=== PATIENT | female | born 1975 | race Caucasian/White ===

== ENCOUNTER 2018-10-30 15:21 | Inpatient (IN) | payer MEDICARE, MEDICAID, SELFPAY ==
[2018-10-30 15:21] VITALS: BP 154/105; PULSE 55; RESP 18; TEMP 36.9; O2SAT 99; BMI 28.1
--- NOTE | 2018-10-30 15:37 | ED.DCSUM_ITS ---
- ER Visit Summary Date of Service: 10/30/18 Chief Complaint: Heroin withdrawal History of Present Illness: The patient is a 43 F going through heroin withdrawal. Patient states she spoke with [facility] was advised to come to the ER because she did have vomiting. Patient states her last heroin use was 3 days ago. She has taken Subutex and Xanax to try to help her symptoms. She is been smoking weed at night. Patient states she continues to have vomiting, abdominal pain, and chills. Physical Examination: Blood pressure is 154 105, temperature 98.5, heart rate 55, respiratory rate 18, pulse ox 99% on room air. Patient sitting upright in bed wrapped in multiple blankets. Head and neck examination unremarkable. Heart is regular. Lung sounds are clear. Abdomen is soft with no focal tenderness. Hypoactive bowel sounds are noted. Skin examination does reveal goosebumps on her arms. Test Results: CBC and chemistry studies grossly unremarkable. LFTs normal. EtOH is unremarkable. Tox screen is pending. Emergency Department Course and Treatment: Patient is given IV fluid and Phenergan on arrival. Staff from [facility] came and saw the patient. She does qualify for the program and has a Cina score 17. I will speak with the hospitalist. Treatment Plan: [] Disposition: Admit Impression: Heroin withdrawal This note was generated with [employer] dictation software. It may contain incorrect words, spelling, and punctuation that were not noted in review of the chart prior to signing ED Disposition - Plan for ED Patient: Referrals: NOT,DEFINED [NON-STAFF] -
[2018-10-30] MEDS: 0.9% Normal Saline 1,000 ML 1000 ML IV (15:53)
[2018-10-30] MEDS: proMETHazine 25 MG/ML Syringe 12.5 MG IV (15:54)
[2018-10-30 16:07] LABS: Absolute Lymphocyte Count 1.47 X10^3/ul (0.83-4.51); Absolute Neutrophil Count 6.8 X10^3/uL (2.0-7.7); Basophil# 0.02 X10^3/uL; Basophil% 0.2 % (0-1); Hematocrit 44.9 % (37-47); Hemoglobin 14.9 g/dl (12.0-15.0); Lymphocyte # 1.47 X10^3/ul (4.0); Lymphocyte % 16.9 % (19-41); Mean Corp Hgb Conc 33.2 g/gl (32-36); Mean Corpuscular Hgb 27.1 pg (27.0-32.0); Mean Corpuscular Volume 81.6 fL (81-99); Mean Platelet Vol. 9.7 fl (6.2-12.0); Monocyte# 0.42 X10^3/uL; Monocyte% 4.8 % (0-10); Neutrophil # 6.76 X10^3/uL (2.7-7.7); Neutrophil % 77.9 % (47-70); POSITIVE COUNT NO; POSITIVE DIFFERENTIAL NO; POSITIVE MORPHOLOGY NO; Platelet Count 334 K/mm3 (150-450); RBC Distribution Width CV 13.6 % (11.6-14.6); RBC Distribution Width SD 40.3 fl (35.1-43.9); White Blood Count 8.7 K/mm3 (4.4-11.0)
[2018-10-30 16:32] LABS: AST(SGOT) 11 U/L (15-37); Alanine Aminotransfer ALT/SGPT 17 U/L (13-56); Albumin, Serum 3.6 g/dL (3.2-5.0); Alkaline Phosphatase 109 U/L (45-117); Anion Gap 9 (5-15); BUN 9 mg/dL (7-18); BUN/Creat Ratio 9.8 RATIO (10-20); Bilirubin, Direct 0.09 mg/dL (0.00-0.30); Calcium,Total 9.2 mg/dL (8.5-10.1); Chloride 106 mmol/L (98-107); Creatinine, Serum 0.92 mg/dL (0.55-1.02); EST Glomerular Filtration Rate 70 mL/min (>60); Est Glom Filt Rate - Afr Amer 85 mL/min (>60); Estimated Creatinine Clearance 75.09 ml/min; Globulin 4.2 g/dL (2.2-4.2); Glucose 139 mg/dL (74-106); Potassium 4.3 mmol/L (3.5-5.1); Protein, Total 7.8 g/dL (6.4-8.2); Sodium Level 141 mmol/L (136-145)
--- NOTE | 2018-10-30 17:15 | PCM.HP.STD ---
<Melanie Humphrey - Last Filed: 10/30/18 17:26> Problem List (1) Opioid withdrawal Status: Acute (2) Tobacco dependence Status: Chronic (3) Myasthenia gravis Status: Chronic History of Present Illness Date of Admission: 10/30/18 Chief Complaint: Opioid withdrawal. The patient is a 43 year old F who presents to the emergency room requesting [facility] for opioid withdrawal. She reports she has been using heroin via snorting approximately 1 g/day for the past year. She reports her last use was 3 days ago. She has been trying to wean herself off of heroin over the past 2 weeks, using Subutex and Xanax to get herself through withdrawal. She complains of chills, abdominal pain and nausea, vomiting. She reports she also uses marijuana daily and is a current pack per day smoker. Denies other drug and alcohol use. She reports a past medical history of myasthenia gravis which she is not on medication for. Denies other past medical history. Past Medical History Past Medical History (Chronic Problems): Chronic Problems Tobacco dependence (Chronic) Myasthenia gravis (Chronic) Allergies acetaminophen [From Darvocet-N] Adverse Reaction (Verified 10/30/18 15:23) Vomiting propoxyphene [From Darvocet-N] Adverse Reaction (Verified 10/30/18 15:23) Vomiting Home Medications: Ambulatory Orders Medication Instructions Recorded NK 10/30/18 Surgical History: - - x2, appendectomy. 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 Review of Systems Constitutional: Reports: Chills, Malaise HEENT: Reports: Nasal Congestion. Denies: Head Aches, Sinus Congestion, Sinus Drainage Cardiovascular: Denies: Chest Pain, Edema, Light Headedness, Palpitations, Syncope Respiratory: Denies: Cough, Shortness of breath at rest, Sputum production Gastrointestinal: Reports: Abdominal Pain, Nausea, Vomiting. Denies: Constipation, Diarrhea Genitourinary: Denies: Dysuria Musculoskeletal: Denies: Joint Pain, Joint Tenderness Skin: Denies: Rash, Wounds Neurological: Denies: Numbness, Tingling, Focal weakness Psychiatric: Denies: Anxiety, Depression, Homicidal Ideations, Suicidal Ideations Hematologic/ Lymphatic: Denies: Easy Bruising, Easy Bleeding VTE Information - Inpt Only VTE Present on Admission: No VTE Mechan Device Prophylaxis: None VTE Pharm Prophylaxis ordered?: No Reason prophylaxis not ordered:: Treatment Not Indicated Patient Problems: Active and Suspected Problems Opioid withdrawal (Acute) - Physical Exam General: Alert, Oriented x3, Cooperative HEENT: Atraumatic, PERRLA, EOMI, Normocephalic Oral: Dry Mucosa, - - Poor dentition Neck: Supple, No JVD, Negative Carotid Bruits Lungs: Clear to auscultation, Diminished Cardiovascular: Regular rate, Regular Rhythm, Normal S1, Normal S2, No murmurs Abdomen: Bowel Sounds Present, Soft, Non Tender, Non-Distended, Obese Extremities: No clubbing, No cyanosis, No edema, Capillary Refill Less than 3 Seconds Skin: No rashes, No breakdown Musculoskeletal: No Tenderness to Palpation of Joints or Extremities Neurological: Cranial nerves II-XII grossly intact, Neuro grossly intact Psych/Mental Status: Flat Affect Vital Signs Temp Pulse Resp BP Pulse Ox 98.5 F 55 L 18 154/105 H 99 10/30/18 15:21 10/30/18 15:21 10/30/18 15:21 10/30/18 15:21 10/30/18 15:21 Weight: 180 lb Body Mass Index (BMI) 28.1 Laboratory Tests Past 24 Hrs 10/30/18 10/30/18 10/30/18 15:35 15:35 15:35 WBC 8.7 RBC 5.50 H Hgb 14.9 Hct 44.9 MCV 81.6 MCH 27.1 MCHC 33.2 RDW 13.6 RDW Differential 40.3 Plt Count 334 MPV 9.7 Immature Gran % (Auto) 0.200 Neut % (Auto) 77.9 H Lymph % (Auto) 16.9 L Mcleod % (Auto) 4.8 Eos % (Auto) 0.0 Baso % (Auto) 0.2 Absolute Neuts (auto) 6.8 Absolute Lymphs (auto) 1.47 Total Counted Not Reportable Sodium 141 Potassium 4.3 Chloride 106 Carbon Dioxide 26.0 Anion Gap 9 BUN 9 Creatinine 0.92 Estim Creat Clear Calc 75.09 Est GFR (MDRD) Af Amer 85 Est GFR (MDRD) Non-Af 70 BUN/Creatinine Ratio 9.8 L Glucose 139 H Calcium 9.2 Total Bilirubin 0.30 Direct Bilirubin 0.09 AST 11 L ALT 17 Alkaline Phosphatase 109 Total Protein 7.8 Albumin 3.6 Globulin 4.2 Urine Color Urine Clarity Urine pH Ur Specific Logan U Specif Grav (Refrac) Urine Protein Urine Glucose (UA) Urine Ketones Urine Occult Blood Urine Nitrite Urine Bilirubin Urine Urobilinogen Ur Leukocyte Esterase Urine RBC Urine WBC Ur Squamous Epith Cells Ur Transition Epith Cell Ur Renal Epithelial Cell Calcium Oxalate Crystal Uric Acid Crystals Triple Phos Crystals Other Crystals Amorphous Sediment Urine Bacteria Hyaline Casts Fine Granular Casts Coarse Granular Casts Waxy Casts RBC Casts WBC Casts Urine Mucus Urine Trichomonas Urine Yeast Ethyl Alcohol 9.0 10/30/18 16:20 WBC RBC Hgb Hct MCV MCH MCHC RDW RDW Differential Plt Count MPV Immature Gran % (Auto) Neut % (Auto) Lymph % (Auto) Mcleod % (Auto) Eos % (Auto) Baso % (Auto) Absolute Neuts (auto) Absolute Lymphs (auto) Total Counted Sodium Potassium Chloride Carbon Dioxide Anion Gap BUN Creatinine Estim Creat Clear Calc Est GFR (MDRD) Af Amer Est GFR (MDRD) Non-Af BUN/Creatinine Ratio Glucose Calcium Total Bilirubin Direct Bilirubin AST ALT Alkaline Phosphatase Total Protein Albumin Globulin Urine Color Cancelled Urine Clarity Cancelled Urine pH Cancelled Ur Specific Logan Cancelled U Specif Grav (Refrac) Cancelled Urine Protein Cancelled Urine Glucose (UA) Cancelled Urine Ketones Cancelled Urine Occult Blood Cancelled Urine Nitrite Cancelled Urine Bilirubin Cancelled Urine Urobilinogen Cancelled Ur Leukocyte Esterase Cancelled Urine RBC Cancelled Urine WBC Cancelled Ur Squamous Epith Cells Cancelled Ur Transition Epith Cell Cancelled Ur Renal Epithelial Cell Cancelled Calcium Oxalate Crystal Cancelled Uric Acid Crystals Cancelled Triple Phos Crystals Cancelled Other Crystals Cancelled Amorphous Sediment Cancelled Urine Bacteria Cancelled Hyaline Casts Cancelled Fine Granular Casts Cancelled Coarse Granular Casts Cancelled Waxy Casts Cancelled RBC Casts Cancelled WBC Casts Cancelled Urine Mucus Cancelled Urine Trichomonas Cancelled Urine Yeast Cancelled Ethyl Alcohol Assessment/Plan All Active Problems Opioid withdrawal (Acute) 1. Acute opioid withdrawal, chronic heroin use-medical stabilization per [facility] protocol. PRN regimen for somatic complaints. Obtain urine drug screen. CBC, CMP unremarkable with exception of elevated glucose. 2. Tobacco dependence-encourage smoking cessation. Nicotine replacement patch. 3. Myasthenia gravis-not on regimen. DVT prophylaxis-not indicated, low risk. This patient was seen by BRIAN Roman under the supervision of Dr. Duncan. <DakotaSamantha E - Last Filed: 10/30/18 17:37> History of Present Illness The patient is a 43 year old F [] Past Medical History Allergies acetaminophen [From Darvocet-N] Adverse Reaction (Verified 10/30/18 15:23) Vomiting propoxyphene [From Darvocet-N] Adverse Reaction (Verified 10/30/18 15:23) Vomiting - Physical Exam Vital Signs Temp Pulse Resp BP Pulse Ox 98.5 F 55 L 18 154/105 H 99 10/30/18 15:21 10/30/18 15:21 10/30/18 15:21 10/30/18 15:21 10/30/18 15:21 Weight: 180 lb Body Mass Index (BMI) 28.1 Laboratory Tests Past 24 Hrs 10/30/18 10/30/18 10/30/18 15:35 15:35 15:35 WBC 8.7 RBC 5.50 H Hgb 14.9 Hct 44.9 MCV 81.6 MCH 27.1 MCHC 33.2 RDW 13.6 RDW Differential 40.3 Plt Count 334 MPV 9.7 Immature Gran % (Auto) 0.200 Neut % (Auto) 77.9 H Lymph % (Auto) 16.9 L Mcleod % (Auto) 4.8 Eos % (Auto) 0.0 Baso % (Auto) 0.2 Absolute Neuts (auto) 6.8 Absolute Lymphs (auto) 1.47 Total Counted Not Reportable Sodium 141 Potassium 4.3 Chloride 106 Carbon Dioxide 26.0 Anion Gap 9 BUN 9 Creatinine 0.92 Estim Creat Clear Calc 75.09 Est GFR (MDRD) Af Amer 85 Est GFR (MDRD) Non-Af 70 BUN/Creatinine Ratio 9.8 L Glucose 139 H Calcium 9.2 Total Bilirubin 0.30 Direct Bilirubin 0.09 AST 11 L ALT 17 Alkaline Phosphatase 109 Total Protein 7.8 Albumin 3.6 Globulin 4.2 Urine Color Urine Clarity Urine pH Ur Specific Logan U Specif Grav (Refrac) Urine Protein Urine Glucose (UA) Urine Ketones Urine Occult Blood Urine Nitrite Urine Bilirubin Urine Urobilinogen Ur Leukocyte Esterase Urine RBC Urine WBC Ur Squamous Epith Cells Ur Transition Epith Cell Ur Renal Epithelial Cell Calcium Oxalate Crystal Uric Acid Crystals Triple Phos Crystals Other Crystals Amorphous Sediment Urine Bacteria Hyaline Casts Fine Granular Casts Coarse Granular Casts Waxy Casts RBC Casts WBC Casts Urine Mucus Urine Trichomonas Urine Yeast Ethyl Alcohol 9.0 10/30/18 16:20 WBC RBC Hgb Hct MCV MCH MCHC RDW RDW Differential Plt Count MPV Immature Gran % (Auto) Neut % (Auto) Lymph % (Auto) Mcleod % (Auto) Eos % (Auto) Baso % (Auto) Absolute Neuts (auto) Absolute Lymphs (auto) Total Counted Sodium Potassium Chloride Carbon Dioxide Anion Gap BUN Creatinine Estim Creat Clear Calc Est GFR (MDRD) Af Amer Est GFR (MDRD) Non-Af BUN/Creatinine Ratio Glucose Calcium Total Bilirubin Direct Bilirubin AST ALT Alkaline Phosphatase Total Protein Albumin Globulin Urine Color Cancelled Urine Clarity Cancelled Urine pH Cancelled Ur Specific Logan Cancelled U Specif Grav (Refrac) Cancelled Urine Protein Cancelled Urine Glucose (UA) Cancelled Urine Ketones Cancelled Urine Occult Blood Cancelled Urine Nitrite Cancelled Urine Bilirubin Cancelled Urine Urobilinogen Cancelled Ur Leukocyte Esterase Cancelled Urine RBC Cancelled Urine WBC Cancelled Ur Squamous Epith Cells Cancelled Ur Transition Epith Cell Cancelled Ur Renal Epithelial Cell Cancelled Calcium Oxalate Crystal Cancelled Uric Acid Crystals Cancelled Triple Phos Crystals Cancelled Other Crystals Cancelled Amorphous Sediment Cancelled Urine Bacteria Cancelled Hyaline Casts Cancelled Fine Granular Casts Cancelled Coarse Granular Casts Cancelled Waxy Casts Cancelled RBC Casts Cancelled WBC Casts Cancelled Urine Mucus Cancelled Urine Trichomonas Cancelled Urine Yeast Cancelled Ethyl Alcohol Assessment/Plan Hospitalist note: I am seeing this patient in conjunction with Melanie Humphrey. I independently seen and examined the patient. History and physical and laboratory data reviewed and I agree with the above admission and treatment plan. Patient presented to the emergency room requesting admission for acute opioid withdrawal for medical stabilization. Her presenting symptoms are nausea and vomiting started 2 days ago after her last use of heroin, associated with mild abdominal pain, described as abdominal cramps, not radiating and without aggravating or relieving factors. She admitted that she has been smoking marijuana as well. She complains of hot and cold sweats, restlessness and anxiety as well. At this time, her vital signs are stable. Her routine blood work was unremarkable. LFT was normal. She is being admitted for acute opioid withdrawal for medical stabilization. - Physical Exam General: Alert, Oriented x3, Cooperative, restless. HEENT: Atraumatic, PERRLA, EOMI. Neck: Supple, No JVD, Negative Carotid Bruits, Trachea Midline, Thyroid Normal. Lungs: Clear to auscultation, Normal air movement, No rhonchi, No wheeze, No rales. Cardiovascular: Regular rate, Regular Rhythm, Normal S1, Normal S2, PMI Normal. Abdomen: Bowel Sounds Present, Soft, Non Tender, Non-Distended, No Hepato-splenomegaly. Extremities: No clubbing, No cyanosis, No edema Skin: No rashes, No breakdown Neurological: Neuro grossly intact. Vital Signs are stable. assessment and plan: #1 acute opiate withdrawal: Admit to [facility] floor, initiate [facility] protocol with the back of Subutex, PRN Catapres, Bentyl, Vistaril, methocarbamol, Zofran and Mirapex, trazodone nightly, notify [facility] office. #2 other chronic medical problems: Stable, continue current medications as above. This note was generated with [employer] dictation software. It may contain incorrect words, spelling, and punctuation that were not noted in checking the note before signing. Code Visit Inpatient E&M: 81322 Init Hosp L2
--- NOTE | 2018-10-30 17:20 | HP.PCM_ITS ---
<Melanie Humphrey - Last Filed: 10/30/18 17:26> Problem List (1) Opioid withdrawal Status: Acute (2) Tobacco dependence Status: Chronic (3) Myasthenia gravis Status: Chronic History of Present Illness Date of Admission: 10/30/18 Chief Complaint: Opioid withdrawal. The patient is a 43 year old F who presents to the emergency room requesting [facility] for opioid withdrawal. She reports she has been using heroin via snorting approximately 1 g/day for the past year. She reports her last use was 3 days ago. She has been trying to wean herself off of heroin over the past 2 weeks, using Subutex and Xanax to get herself through withdrawal. She complains of chills, abdominal pain and nausea, vomiting. She reports she also uses marijuana daily and is a current pack per day smoker. Denies other drug and alcohol use. She reports a past medical history of myasthenia gravis which she is not on medication for. Denies other past medical history. Past Medical History Past Medical History (Chronic Problems): Chronic Problems Tobacco dependence (Chronic) Myasthenia gravis (Chronic) Allergies acetaminophen [From Darvocet-N] Adverse Reaction (Verified 10/30/18 15:23) Vomiting propoxyphene [From Darvocet-N] Adverse Reaction (Verified 10/30/18 15:23) Vomiting Home Medications: Ambulatory Orders Medication Instructions Recorded NK 10/30/18 Surgical History: - - x2, appendectomy. 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 Review of Systems Constitutional: Reports: Chills, Malaise HEENT: Reports: Nasal Congestion. Denies: Head Aches, Sinus Congestion, Sinus Drainage Cardiovascular: Denies: Chest Pain, Edema, Light Headedness, Palpitations, Syncope Respiratory: Denies: Cough, Shortness of breath at rest, Sputum production Gastrointestinal: Reports: Abdominal Pain, Nausea, Vomiting. Denies: Constipation, Diarrhea Genitourinary: Denies: Dysuria Musculoskeletal: Denies: Joint Pain, Joint Tenderness Skin: Denies: Rash, Wounds Neurological: Denies: Numbness, Tingling, Focal weakness Psychiatric: Denies: Anxiety, Depression, Homicidal Ideations, Suicidal Ideations Hematologic/ Lymphatic: Denies: Easy Bruising, Easy Bleeding VTE Information - Inpt Only VTE Present on Admission: No VTE Mechan Device Prophylaxis: None VTE Pharm Prophylaxis ordered?: No Reason prophylaxis not ordered:: Treatment Not Indicated Patient Problems: Active and Suspected Problems Opioid withdrawal (Acute) - Physical Exam General: Alert, Oriented x3, Cooperative HEENT: Atraumatic, PERRLA, EOMI, Normocephalic Oral: Dry Mucosa, - - Poor dentition Neck: Supple, No JVD, Negative Carotid Bruits Lungs: Clear to auscultation, Diminished Cardiovascular: Regular rate, Regular Rhythm, Normal S1, Normal S2, No murmurs Abdomen: Bowel Sounds Present, Soft, Non Tender, Non-Distended, Obese Extremities: No clubbing, No cyanosis, No edema, Capillary Refill Less than 3 Seconds Skin: No rashes, No breakdown Musculoskeletal: No Tenderness to Palpation of Joints or Extremities Neurological: Cranial nerves II-XII grossly intact, Neuro grossly intact Psych/Mental Status: Flat Affect Vital Signs Temp Pulse Resp BP Pulse Ox 98.5 F 55 L 18 154/105 H 99 10/30/18 15:21 10/30/18 15:21 10/30/18 15:21 10/30/18 15:21 10/30/18 15:21 Weight: 180 lb Body Mass Index (BMI) 28.1 Laboratory Tests Past 24 Hrs 10/30/18 10/30/18 10/30/18 15:35 15:35 15:35 WBC 8.7 RBC 5.50 H Hgb 14.9 Hct 44.9 MCV 81.6 MCH 27.1 MCHC 33.2 RDW 13.6 RDW Differential 40.3 Plt Count 334 MPV 9.7 Immature Gran % (Auto) 0.200 Neut % (Auto) 77.9 H Lymph % (Auto) 16.9 L [place] % (Auto) 4.8 Eos % (Auto) 0.0 Baso % (Auto) 0.2 Absolute Neuts (auto) 6.8 Absolute Lymphs (auto) 1.47 Total Counted Not Reportable Sodium 141 Potassium 4.3 Chloride 106 Carbon Dioxide 26.0 Anion Gap 9 BUN 9 Creatinine 0.92 Estim Creat Clear Calc 75.09 Est GFR (MDRD) Af Amer 85 Est GFR (MDRD) Non-Af 70 BUN/Creatinine Ratio 9.8 L Glucose 139 H Calcium 9.2 Total Bilirubin 0.30 Direct Bilirubin 0.09 AST 11 L ALT 17 Alkaline Phosphatase 109 Total Protein 7.8 Albumin 3.6 Globulin 4.2 Urine Color Urine Clarity Urine pH Ur Specific [place] U Specif Grav (Refrac) Urine Protein Urine Glucose (UA) Urine Ketones Urine Occult Blood Urine Nitrite Urine Bilirubin Urine Urobilinogen Ur Leukocyte Esterase Urine RBC Urine WBC Ur Squamous Epith Cells Ur Transition Epith Cell Ur Renal Epithelial Cell Calcium Oxalate Crystal Uric Acid Crystals Triple Phos Crystals Other Crystals Amorphous Sediment Urine Bacteria Hyaline Casts Fine Granular Casts Coarse Granular Casts Waxy Casts RBC Casts WBC Casts Urine Mucus Urine Trichomonas Urine Yeast Ethyl Alcohol 9.0 10/30/18 16:20 WBC RBC Hgb Hct MCV MCH MCHC RDW RDW Differential Plt Count MPV Immature Gran % (Auto) Neut % (Auto) Lymph % (Auto) [place] % (Auto) Eos % (Auto) Baso % (Auto) Absolute Neuts (auto) Absolute Lymphs (auto) Total Counted Sodium Potassium Chloride Carbon Dioxide Anion Gap BUN Creatinine Estim Creat Clear Calc Est GFR (MDRD) Af Amer Est GFR (MDRD) Non-Af BUN/Creatinine Ratio Glucose Calcium Total Bilirubin Direct Bilirubin AST ALT Alkaline Phosphatase Total Protein Albumin Globulin Urine Color Cancelled Urine Clarity Cancelled Urine pH Cancelled Ur Specific [place] Cancelled U Specif Grav (Refrac) Cancelled Urine Protein Cancelled Urine Glucose (UA) Cancelled Urine Ketones Cancelled Urine Occult Blood Cancelled Urine Nitrite Cancelled Urine Bilirubin Cancelled Urine Urobilinogen Cancelled Ur Leukocyte Esterase Cancelled Urine RBC Cancelled Urine WBC Cancelled Ur Squamous Epith Cells Cancelled Ur Transition Epith Cell Cancelled Ur Renal Epithelial Cell Cancelled Calcium Oxalate Crystal Cancelled Uric Acid Crystals Cancelled Triple Phos Crystals Cancelled Other Crystals Cancelled Amorphous Sediment Cancelled Urine Bacteria Cancelled Hyaline Casts Cancelled Fine Granular Casts Cancelled Coarse Granular Casts Cancelled Waxy Casts Cancelled RBC Casts Cancelled WBC Casts Cancelled Urine Mucus Cancelled Urine Trichomonas Cancelled Urine Yeast Cancelled Ethyl Alcohol Assessment/Plan All Active Problems Opioid withdrawal (Acute) 1. Acute opioid withdrawal, chronic heroin use-medical stabilization per [facility] protocol. PRN regimen for somatic complaints. Obtain urine drug screen. CBC, CMP unremarkable with exception of elevated glucose. 2. Tobacco dependence-encourage smoking cessation. Nicotine replacement patch. 3. Myasthenia gravis-not on regimen. DVT prophylaxis-not indicated, low risk. This patient was seen by BRIAN Roman under the supervision of Dr. Duncan. <DakotaSamantha E - Last Filed: 10/30/18 17:37> History of Present Illness The patient is a 43 year old F [] Past Medical History Allergies acetaminophen [From Darvocet-N] Adverse Reaction (Verified 10/30/18 15:23) Vomiting propoxyphene [From Darvocet-N] Adverse Reaction (Verified 10/30/18 15:23) Vomiting - Physical Exam Vital Signs Temp Pulse Resp BP Pulse Ox 98.5 F 55 L 18 154/105 H 99 10/30/18 15:21 10/30/18 15:21 10/30/18 15:21 10/30/18 15:21 10/30/18 15:21 Weight: 180 lb Body Mass Index (BMI) 28.1 Laboratory Tests Past 24 Hrs 10/30/18 10/30/18 10/30/18 15:35 15:35 15:35 WBC 8.7 RBC 5.50 H Hgb 14.9 Hct 44.9 MCV 81.6 MCH 27.1 MCHC 33.2 RDW 13.6 RDW Differential 40.3 Plt Count 334 MPV 9.7 Immature Gran % (Auto) 0.200 Neut % (Auto) 77.9 H Lymph % (Auto) 16.9 L [place] % (Auto) 4.8 Eos % (Auto) 0.0 Baso % (Auto) 0.2 Absolute Neuts (auto) 6.8 Absolute Lymphs (auto) 1.47 Total Counted Not Reportable Sodium 141 Potassium 4.3 Chloride 106 Carbon Dioxide 26.0 Anion Gap 9 BUN 9 Creatinine 0.92 Estim Creat Clear Calc 75.09 Est GFR (MDRD) Af Amer 85 Est GFR (MDRD) Non-Af 70 BUN/Creatinine Ratio 9.8 L Glucose 139 H Calcium 9.2 Total Bilirubin 0.30 Direct Bilirubin 0.09 AST 11 L ALT 17 Alkaline Phosphatase 109 Total Protein 7.8 Albumin 3.6 Globulin 4.2 Urine Color Urine Clarity Urine pH Ur Specific [place] U Specif Grav (Refrac) Urine Protein Urine Glucose (UA) Urine Ketones Urine Occult Blood Urine Nitrite Urine Bilirubin Urine Urobilinogen Ur Leukocyte Esterase Urine RBC Urine WBC Ur Squamous Epith Cells Ur Transition Epith Cell Ur Renal Epithelial Cell Calcium Oxalate Crystal Uric Acid Crystals Triple Phos Crystals Other Crystals Amorphous Sediment Urine Bacteria Hyaline Casts Fine Granular Casts Coarse Granular Casts Waxy Casts RBC Casts WBC Casts Urine Mucus Urine Trichomonas Urine Yeast Ethyl Alcohol 9.0 10/30/18 16:20 WBC RBC Hgb Hct MCV MCH MCHC RDW RDW Differential Plt Count MPV Immature Gran % (Auto) Neut % (Auto) Lymph % (Auto) [place] % (Auto) Eos % (Auto) Baso % (Auto) Absolute Neuts (auto) Absolute Lymphs (auto) Total Counted Sodium Potassium Chloride Carbon Dioxide Anion Gap BUN Creatinine Estim Creat Clear Calc Est GFR (MDRD) Af Amer Est GFR (MDRD) Non-Af BUN/Creatinine Ratio Glucose Calcium Total Bilirubin Direct Bilirubin AST ALT Alkaline Phosphatase Total Protein Albumin Globulin Urine Color Cancelled Urine Clarity Cancelled Urine pH Cancelled Ur Specific [place] Cancelled U Specif Grav (Refrac) Cancelled Urine Protein Cancelled Urine Glucose (UA) Cancelled Urine Ketones Cancelled Urine Occult Blood Cancelled Urine Nitrite Cancelled Urine Bilirubin Cancelled Urine Urobilinogen Cancelled Ur Leukocyte Esterase Cancelled Urine RBC Cancelled Urine WBC Cancelled Ur Squamous Epith Cells Cancelled Ur Transition Epith Cell Cancelled Ur Renal Epithelial Cell Cancelled Calcium Oxalate Crystal Cancelled Uric Acid Crystals Cancelled Triple Phos Crystals Cancelled Other Crystals Cancelled Amorphous Sediment Cancelled Urine Bacteria Cancelled Hyaline Casts Cancelled Fine Granular Casts Cancelled Coarse Granular Casts Cancelled Waxy Casts Cancelled RBC Casts Cancelled WBC Casts Cancelled Urine Mucus Cancelled Urine Trichomonas Cancelled Urine Yeast Cancelled Ethyl Alcohol Assessment/Plan Hospitalist note: I am seeing this patient in conjunction with Melanie Humphrey. I independently seen and examined the patient. History and physical and laboratory data reviewed and I agree with the above admission and treatment plan. Patient presented to the emergency room requesting admission for acute opioid withdrawal for medical stabilization. Her presenting symptoms are nausea and vomiting started 2 days ago after her last use of heroin, associated with mild abdominal pain, described as abdominal cramps, not radiating and without aggravating or relieving factors. She admitted that she has been smoking marijuana as well. She complains of hot and cold sweats, restlessness and anxiety as well. At this time, her vital signs are stable. Her routine blood work was unremarkable. LFT was normal. She is being admitted for acute opioid withdrawal for medical st abilization. - Physical Exam General: Alert, Oriented x3, Cooperative, restless. HEENT: Atraumatic, PERRLA, EOMI. Neck: Supple, No JVD, Negative Carotid Bruits, Trachea Midline, Thyroid Normal. Lungs: Clear to auscultation, Normal air movement, No rhonchi, No wheeze, No rales. Cardiovascular: Regular rate, Regular Rhythm, Normal S1, Normal S2, PMI Normal. Abdomen: Bowel Sounds Present, Soft, Non Tender, Non-Distended, No Hepato- splenomegaly. Extremities: No clubbing, No cyanosis, No edema Skin: No rashes, No breakdown Neurological: Neuro grossly intact. Vital Signs are stable. assessment and plan: #1 acute opiate withdrawal: Admit to MedSurg floor, initiate [facility] protocol with the back of Subutex, PRN Catapres, Bentyl, Vistaril, methocarbamol, Zofran and Mirapex, trazodone nightly, notify [facility] office. #2 other chronic medical problems: Stable, continue current medications as above. This note was generated with [employer] dictation software. It may contain incorrect words, spelling, and punctuation that were not noted in checking the note before signing. Code Visit Inpatient E&M: 94599 Init Hosp L2
[2018-10-30 17:36] VITALS: BMI 28.2
[2018-10-30 17:46] VITALS: BP 140/86; PULSE 60; RESP 16; TEMP 36.9; O2SAT 97
[2018-10-30 17:48] VITALS: BMI 36.6
[2018-10-30] MEDS: Ondansetron ODT 4 MG Tablet PO (18:01)
[2018-10-30 18:03] LABS: Internal QC Validated? YES +Cl - CLEAR BKGD; Pregnancy, Serum, hCG Quali. NEGATIVE Negative
[2018-10-30 18:11] VITALS: BP 140/86; PULSE 60; RESP 16; TEMP 36.9
[2018-10-30] MEDS: Methocarbamol 750 MG Tablet PO (18:15)
[2018-10-30] MEDS: cloNIDine HCl 0.1 MG Tablet PO (18:15)
[2018-10-30] MEDS: Buprenorphine HCl 2 MG TAB.SUBL SL (18:15)
[2018-10-30] MEDS: Pramipexole Di-HCl 0.25 MG Tablet PO (18:15)
[2018-10-30 22:00] VITALS: BP 131/74; PULSE 83; RESP 20; TEMP 37.1
[2018-10-30] MEDS: traZODone 50 MG Tablet PO (22:24)
[2018-10-30 22:38] VITALS: BP 131/74; PULSE 83; RESP 18; TEMP 37.1; O2SAT 97
[2018-10-31] VITALS (9 sets, daily range): BP systolic 109–141; BP diastolic 77–85; PULSE 62–90; RESP 18–20; TEMP 36.6–37.4; O2SAT 95–99
[2018-10-31] MEDS: Famotidine 20 MG Tablet PO ×2 (00:02→07:40)
[2018-10-31] MEDS: Buprenorphine HCl 2 MG TAB.SUBL SL ×3 (02:30→17:17)
[2018-10-31 03:15] LABS: Bacteria 0 SEEN /hpf (None Seen); Mucous, Urine 0 SEEN /hpf (<or=2+)
[2018-10-31 03:34] LABS: Color, Urine Yellow (Yellow); Glucose, Dipstick Normal (Normal); Ketone-Dipstick 50 mg/dl (Negative); Leukocyte Esterase-Dipstick 25 /ul (Negative); Nitrite-Dipstick Negative (Negative); Occult Blood-Urine 50 /ul (Negative); Protein-Dipstick 15 mg/dl (Negative); Urine Bilirubin Dipstick Negative (Negative); Urine Clarity Clear (Clear); Urine Urobilinogen Normal (Normal)
[2018-10-31 03:38] LABS: Vista UDS pH Range 7
[2018-10-31 03:43] LABS: Red Blood Cells-Urine 10-25 SEEN /hpf (0-5); Squamous Epithelial Cells - UA 0-5 SEEN /hpf (5-10); White Blood Cells 5-10 SEEN /hpf (0-5)
[2018-10-31 03:57] LABS: Amphetamine Urine VISTA NEGATIVE (<1000 ng/mL); Barbiturate Urine VISTA NEGATIVE (< 200 ng/mL); Benzodiazepine Urine VISTA POSITIVE (< 200 ng/mL); Cocaine Urine VISTA NEGATIVE (< 300 ng/mL); Ecstacy Urine VISTA NEGATIVE (< 500 ng/mL); Methadone Urine VISTA NEGATIVE (< 300 ng/mL); PCP Urine VISTA NEGATIVE (< 25 ng/mL); THC Urine VISTA POSITIVE (< 50 ng/mL)
[2018-10-31] MEDS: Dicyclomine 10 MG Capsule 20 MG PO ×2 (07:39→22:28)
[2018-10-31] MEDS: hydrOXYzine PAM 25 MG Capsule 50 MG PO ×2 (07:40→17:19)
[2018-10-31] MEDS: Methocarbamol 750 MG Tablet PO (07:40)
--- NOTE | 2018-10-31 09:07 | PCM.PROGNOTE ---
<Melanie Humphrey - Last Filed: 10/31/18 09:11> Patient Problems: Active and Suspected Problems Opioid withdrawal (Acute) Subjective: Patient seen and examined. Feels overall improved. Complains of headache and acid reflux. Requesting to shower. - Physical Exam General: Alert, Oriented x3, Cooperative HEENT: Atraumatic, PERRLA, EOMI, Normocephalic Neck: Supple, No JVD, Negative Carotid Bruits Lungs: Clear to auscultation, Normal air movement Cardiovascular: Regular rate, Regular Rhythm, Normal S1, Normal S2, No murmurs Abdomen: Bowel Sounds Present, Soft, Non Tender, Non-Distended, Obese Extremities: No clubbing, No cyanosis, No edema, Capillary Refill Less than 3 Seconds Skin: No rashes, No breakdown Musculoskeletal: No Tenderness to Palpation of Joints or Extremities Neurological: Cranial nerves II-XII grossly intact, Neuro grossly intact Psych/Mental Status: Normal Affect, Appropriate Vital Signs Temp Pulse Resp BP Pulse Ox 97.8 F 73 18 117/85 H 95 10/31/18 08:02 10/31/18 08:02 10/31/18 08:02 10/31/18 08:02 10/31/18 08:02 Oxygen Delivery Method Room Air Weight: 233 lb 9.6 oz Body Mass Index (BMI) 36.6 Intake and Output for Last 24 Hours 10/29/18 10/30/18 10/31/18 23:59 23:59 23:59 Intake Total 1087 / 1087 Balance 1087 / 1087 Laboratory Tests Past 24 Hrs 10/30/18 10/30/18 10/30/18 15:35 15:35 15:35 WBC 8.7 RBC 5.50 H Hgb 14.9 Hct 44.9 MCV 81.6 MCH 27.1 MCHC 33.2 RDW 13.6 RDW Differential 40.3 Plt Count 334 MPV 9.7 Immature Gran % (Auto) 0.200 Neut % (Auto) 77.9 H Lymph % (Auto) 16.9 L Coffee % (Auto) 4.8 Eos % (Auto) 0.0 Baso % (Auto) 0.2 Absolute Neuts (auto) 6.8 Absolute Lymphs (auto) 1.47 Total Counted Not Reportable Sodium 141 Potassium 4.3 Chloride 106 Carbon Dioxide 26.0 Anion Gap 9 BUN 9 Creatinine 0.92 Estim Creat Clear Calc 75.09 Est GFR (MDRD) Af Amer 85 Est GFR (MDRD) Non-Af 70 BUN/Creatinine Ratio 9.8 L Glucose 139 H Calcium 9.2 Total Bilirubin 0.30 Direct Bilirubin 0.09 AST 11 L ALT 17 Alkaline Phosphatase 109 Total Protein 7.8 Albumin 3.6 Globulin 4.2 Serum , Qual Urine Color Urine Clarity Urine pH Ur Specific [place] U Specif Grav (Refrac) Urine Protein Urine Glucose (UA) Urine Ketones Urine Occult Blood Urine Nitrite Urine Bilirubin Urine Urobilinogen Ur Leukocyte Esterase Urine RBC Urine WBC Ur Squamous Epith Cells Ur Transition Epith Cell Ur Renal Epithelial Cell Calcium Oxalate Crystal Uric Acid Crystals Triple Phos Crystals Other Crystals Amorphous Sediment Urine Bacteria Hyaline Casts Fine Granular Casts Coarse Granular Casts Waxy Casts RBC Casts WBC Casts Urine Mucus Urine Trichomonas Urine Yeast Urine Opiates Screen Urine Methadone Screen Ur Barbiturates Screen Ur Phencyclidine Scrn Ur Amphetamines Screen U Methamphetamin-MDMA U Benzodiazepines Scrn Urine Cocaine Screen U Cannabinoids Screen Ur Drug Screen Comment Ethyl Alcohol 9.0 10/30/18 10/30/18 10/31/18 15:35 16:20 03:05 WBC RBC Hgb Hct MCV MCH MCHC RDW RDW Differential Plt Count MPV Immature Gran % (Auto) Neut % (Auto) Lymph % (Auto) Coffee % (Auto) Eos % (Auto) Baso % (Auto) Absolute Neuts (auto) Absolute Lymphs (auto) Total Counted Sodium Potassium Chloride Carbon Dioxide Anion Gap BUN Creatinine Estim Creat Clear Calc Est GFR (MDRD) Af Amer Est GFR (MDRD) Non-Af BUN/Creatinine Ratio Glucose Calcium Total Bilirubin Direct Bilirubin AST ALT Alkaline Phosphatase Total Protein Albumin Globulin Serum , Qual NEGATIVE Urine Color Cancelled Yellow Urine Clarity Cancelled Clear Urine pH Cancelled 7.0 Ur Specific [place] Cancelled 1.010 U Specif Grav (Refrac) Cancelled Urine Protein Cancelled 15 H Urine Glucose (UA) Cancelled Normal Urine Ketones Cancelled 50 H Urine Occult Blood Cancelled 50 H Urine Nitrite Cancelled Negative Urine Bilirubin Cancelled Negative Urine Urobilinogen Cancelled Normal Ur Leukocyte Esterase Cancelled 25 H Urine RBC Cancelled 10-25 SEEN Urine WBC Cancelled 5-10 SEEN Ur Squamous Epith Cells Cancelled 0-5 SEEN Ur Transition Epith Cell Cancelled Ur Renal Epithelial Cell Cancelled Calcium Oxalate Crystal Cancelled Uric Acid Crystals Cancelled Triple Phos Crystals Cancelled Other Crystals Cancelled Amorphous Sediment Cancelled Urine Bacteria Cancelled 0 SEEN Hyaline Casts Cancelled Fine Granular Casts Cancelled Coarse Granular Casts Cancelled Waxy Casts Cancelled RBC Casts Cancelled WBC Casts Cancelled Urine Mucus Cancelled 0 SEEN Urine Trichomonas Cancelled Urine Yeast Cancelled Urine Opiates Screen Urine Methadone Screen Ur Barbiturates Screen Ur Phencyclidine Scrn Ur Amphetamines Screen U Methamphetamin-MDMA U Benzodiazepines Scrn Urine Cocaine Screen U Cannabinoids Screen Ur Drug Screen Comment Ethyl Alcohol 10/31/18 03:05 WBC RBC Hgb Hct MCV MCH MCHC RDW RDW Differential Plt Count MPV Immature Gran % (Auto) Neut % (Auto) Lymph % (Auto) Coffee % (Auto) Eos % (Auto) Baso % (Auto) Absolute Neuts (auto) Absolute Lymphs (auto) Total Counted Sodium Potassium Chloride Carbon Dioxide Anion Gap BUN Creatinine Estim Creat Clear Calc Est GFR (MDRD) Af Amer Est GFR (MDRD) Non-Af BUN/Creatinine Ratio Glucose Calcium Total Bilirubin Direct Bilirubin AST ALT Alkaline Phosphatase Total Protein Albumin Globulin Serum , Qual Urine Color Urine Clarity Urine pH Ur Specific [place] U Specif Grav (Refrac) Urine Protein Urine Glucose (UA) Urine Ketones Urine Occult Blood Urine Nitrite Urine Bilirubin Urine Urobilinogen Ur Leukocyte Esterase Urine RBC Urine WBC Ur Squamous Epith Cells Ur Transition Epith Cell Ur Renal Epithelial Cell Calcium Oxalate Crystal Uric Acid Crystals Triple Phos Crystals Other Crystals Amorphous Sediment Urine Bacteria Hyaline Casts Fine Granular Casts Coarse Granular Casts Waxy Casts RBC Casts WBC Casts Urine Mucus Urine Trichomonas Urine Yeast Urine Opiates Screen NEGATIVE Urine Methadone Screen NEGATIVE Ur Barbiturates Screen NEGATIVE Ur Phencyclidine Scrn NEGATIVE Ur Amphetamines Screen NEGATIVE U Methamphetamin-MDMA NEGATIVE U Benzodiazepines Scrn POSITIVE H Urine Cocaine Screen NEGATIVE U Cannabinoids Screen POSITIVE H Ur Drug Screen Comment Ethyl Alcohol Medical Necessity - Tobacco Use Smoking Status: Current every day smoker Tobacco Use: Cigarettes Assessment/Plan All Active Problems Opioid withdrawal (Acute) 1. Acute opioid withdrawal, chronic heroin use-medical stabilization per [facility] protocol. PRN regimen for somatic complaints. Urine drug screen positive for benzodiazepines and cannabinoids. CBC, CMP unremarkable with exception of elevated glucose. Patient reports she plans on inpatient treatment at discharge following [facility] protocol. 2. Tobacco dependence-encourage smoking cessation. Nicotine replacement patch. 3. Myasthenia gravis-not on regimen. 4. Bipolar disorder-untreated. Recommend outpatient follow-up. DVT prophylaxis-not indicated, low risk. This patient was seen by BRIAN Roman under the supervision of Dr. Matthews. <Vikram Matthews F - Last Filed: 10/31/18 11:30> - Physical Exam Vital Signs Temp Pulse Resp BP Pulse Ox 97.8 F 90 18 117/85 H 95 10/31/18 08:02 10/31/18 10:35 10/31/18 08:02 10/31/18 08:02 10/31/18 08:02 Oxygen Delivery Method Room Air Weight: 233 lb 9.6 oz Body Mass Index (BMI) 36.6 Intake and Output for Last 24 Hours 10/29/18 10/30/18 10/31/18 23:59 23:59 23:59 Intake Total 1087 / 1087 Balance 1087 / 1087 Laboratory Tests Past 24 Hrs 10/30/18 10/30/18 10/30/18 15:35 15:35 15:35 WBC 8.7 RBC 5.50 H Hgb 14.9 Hct 44.9 MCV 81.6 MCH 27.1 MCHC 33.2 RDW 13.6 RDW Differential 40.3 Plt Count 334 MPV 9.7 Immature Gran % (Auto) 0.200 Neut % (Auto) 77.9 H Lymph % (Auto) 16.9 L Coffee % (Auto) 4.8 Eos % (Auto) 0.0 Baso % (Auto) 0.2 Absolute Neuts (auto) 6.8 Absolute Lymphs (auto) 1.47 Total Counted Not Reportable Sodium 141 Potassium 4.3 Chloride 106 Carbon Dioxide 26.0 Anion Gap 9 BUN 9 Creatinine 0.92 Estim Creat Clear Calc 75.09 Est GFR (MDRD) Af Amer 85 Est GFR (MDRD) Non-Af 70 BUN/Creatinine Ratio 9.8 L Glucose 139 H Calcium 9.2 Total Bilirubin 0.30 Direct Bilirubin 0.09 AST 11 L ALT 17 Alkaline Phosphatase 109 Total Protein 7.8 Albumin 3.6 Globulin 4.2 Serum , Qual Urine Color Urine Clarity Urine pH Ur Specific [place] U Specif Grav (Refrac) Urine Protein Urine Glucose (UA) Urine Ketones Urine Occult Blood Urine Nitrite Urine Bilirubin Urine Urobilinogen Ur Leukocyte Esterase Urine RBC Urine WBC Ur Squamous Epith Cells Ur Transition Epith Cell Ur Renal Epithelial Cell Calcium Oxalate Crystal Uric Acid Crystals Triple Phos Crystals Other Crystals Amorphous Sediment Urine Bacteria Hyaline Casts Fine Granular Casts Coarse Granular Casts Waxy Casts RBC Casts WBC Casts Urine Mucus Urine Trichomonas Urine Yeast Urine Opiates Screen Urine Methadone Screen Ur Barbiturates Screen Ur Phencyclidine Scrn Ur Amphetamines Screen U Methamphetamin-MDMA U Benzodiazepines Scrn Urine Cocaine Screen U Cannabinoids Screen Ur Drug Screen Comment Ethyl Alcohol 9.0 10/30/18 10/30/18 10/31/18 15:35 16:20 03:05 WBC RBC Hgb Hct MCV MCH MCHC RDW RDW Differential Plt Count MPV Immature Gran % (Auto) Neut % (Auto) Lymph % (Auto) Coffee % (Auto) Eos % (Auto) Baso % (Auto) Absolute Neuts (auto) Absolute Lymphs (auto) Total Counted Sodium Potassium Chloride Carbon Dioxide Anion Gap BUN Creatinine Estim Creat Clear Calc Est GFR (MDRD) Af Amer Est GFR (MDRD) Non-Af BUN/Creatinine Ratio Glucose Calcium Total Bilirubin Direct Bilirubin AST ALT Alkaline Phosphatase Total Protein Albumin Globulin Serum , Qual NEGATIVE Urine Color Cancelled Yellow Urine Clarity Cancelled Clear Urine pH Cancelled 7.0 Ur Specific [place] Cancelled 1.010 U Specif Grav (Refrac) Cancelled Urine Protein Cancelled 15 H Urine Glucose (UA) Cancelled Normal Urine Ketones Cancelled 50 H Urine Occult Blood Cancelled 50 H Urine Nitrite Cancelled Negative Urine Bilirubin Cancelled Negative Urine Urobilinogen Cancelled Normal Ur Leukocyte Esterase Cancelled 25 H Urine RBC Cancelled 10-25 SEEN Urine WBC Cancelled 5-10 SEEN Ur Squamous Epith Cells Cancelled 0-5 SEEN Ur Transition Epith Cell Cancelled Ur Renal Epithelial Cell Cancelled Calcium Oxalate Crystal Cancelled Uric Acid Crystals Cancelled Triple Phos Crystals Cancelled Other Crystals Cancelled Amorphous Sediment Cancelled Urine Bacteria Cancelled 0 SEEN Hyaline Casts Cancelled Fine Granular Casts Cancelled Coarse Granular Casts Cancelled Waxy Casts Cancelled RBC Casts Cancelled WBC Casts Cancelled Urine Mucus Cancelled 0 SEEN Urine Trichomonas Cancelled Urine Yeast Cancelled Urine Opiates Screen Urine Methadone Screen Ur Barbiturates Screen Ur Phencyclidine Scrn Ur Amphetamines Screen U Methamphetamin-MDMA U Benzodiazepines Scrn Urine Cocaine Screen U Cannabinoids Screen Ur Drug Screen Comment Ethyl Alcohol 10/31/18 03:05 WBC RBC Hgb Hct MCV MCH MCHC RDW RDW Differential Plt Count MPV Immature Gran % (Auto) Neut % (Auto) Lymph % (Auto) Coffee % (Auto) Eos % (Auto) Baso % (Auto) Absolute Neuts (auto) Absolute Lymphs (auto) Total Counted Sodium Potassium Chloride Carbon Dioxide Anion Gap BUN Creatinine Estim Creat Clear Calc Est GFR (MDRD) Af Amer Est GFR (MDRD) Non-Af BUN/Creatinine Ratio Glucose Calcium Total Bilirubin Direct Bilirubin AST ALT Alkaline Phosphatase Total Protein Albumin Globulin Serum , Qual Urine Color Urine Clarity Urine pH Ur Specific [place] U Specif Grav (Refrac) Urine Protein Urine Glucose (UA) Urine Ketones Urine Occult Blood Urine Nitrite Urine Bilirubin Urine Urobilinogen Ur Leukocyte Esterase Urine RBC Urine WBC Ur Squamous Epith Cells Ur Transition Epith Cell Ur Renal Epithelial Cell Calcium Oxalate Crystal Uric Acid Crystals Triple Phos Crystals Other Crystals Amorphous Sediment Urine Bacteria Hyaline Casts Fine Granular Casts Coarse Granular Casts Waxy Casts RBC Casts WBC Casts Urine Mucus Urine Trichomonas Urine Yeast Urine Opiates Screen NEGATIVE Urine Methadone Screen NEGATIVE Ur Barbiturates Screen NEGATIVE Ur Phencyclidine Scrn NEGATIVE Ur Amphetamines Screen NEGATIVE U Methamphetamin-MDMA NEGATIVE U Benzodiazepines Scrn POSITIVE H Urine Cocaine Screen NEGATIVE U Cannabinoids Screen POSITIVE H Ur Drug Screen Comment Ethyl Alcohol Code Visit Addendum: Dr. Matthews I personally examined the patient and reviewed the chart. I agree with the above. 43-year-old female here for opiate withdrawal. This is the first time to the [facility] protocol which was explained to her. We will continue with [facility] protocol and she has already set up outpatient follow-up. Of note she is complaining of some gastric reflux and states that the Pepcid does not work, we will therefore give her a Protonix daily. Inpatient E&M: 19235 Subs Hosp L2
[2018-10-31] MEDS: cloNIDine HCl 0.1 MG Tablet PO ×2 (10:19→19:38)
[2018-10-31] MEDS: Pantoprazole Sodium 40 MG Tablet PO (10:19)
[2018-10-31] MEDS: Acetaminophen 500 MG Tablet 1000 MG PO (11:17)
--- NOTE | 2018-10-31 11:36 | NEWVISION ---
Patient has post D/C appointment at [facility] on 11/07/2018 at 4:30pm for mental health and addiction treatment.
[2018-10-31] MEDS: Ondansetron ODT 4 MG Tablet PO (17:17)
[2018-10-31] MEDS: Pramipexole Di-HCl 0.25 MG Tablet PO (17:21)
[2018-10-31] MEDS: traZODone 50 MG Tablet PO (22:27)
[2018-11-01] VITALS (7 sets, daily range): BP systolic 109–124; BP diastolic 63–94; PULSE 63–73; RESP 14–20; TEMP 36.8–37.1; O2SAT 97–98
[2018-11-01] MEDS: Buprenorphine HCl 2 MG TAB.SUBL SL ×2 (02:23→09:56)
[2018-11-01] MEDS: hydrOXYzine PAM 25 MG Capsule 50 MG PO ×2 (02:24→16:18)
[2018-11-01] MEDS: Pantoprazole Sodium 40 MG Tablet PO (09:56)
--- NOTE | 2018-11-01 12:52 | PCM.PN.HOSP ---
Patient Problems: Active and Suspected Problems Opioid withdrawal (Acute) Subjective: She feels well, states that she has a little bit more manic/hyper today though she is able to manage it. Her GERD is much improved with PPI. Vitals/I&O's: Vital Signs Temp Pulse Resp BP Pulse Ox 98.7 F 63 18 113/63 97 11/01/18 08:15 11/01/18 08:15 11/01/18 08:15 11/01/18 08:15 11/01/18 08:15 Oxygen Delivery Method Room Air Weight: 233 lb 9.6 oz Body Mass Index (BMI) 36.6 Intake and Output for Last 24 Hours 10/30/18 10/31/18 11/01/18 23:59 23:59 23:59 Intake Total 1087 / 1087 Balance 1087 / 1087 General: Alert, Oriented x3, Cooperative, No apparent distress HEENT: Atraumatic, PERRLA, EOMI, Normocephalic Oral: Moist Mucosa Neck: Supple, No JVD Lungs: Clear to auscultation, Normal air movement, No rhonchi, No wheeze, No rales Cardiovascular: Regular rate, Regular Rhythm, Normal S1, Normal S2, No murmurs Abdomen: Soft, Non Tender, Non-Distended, No Hepato-splenomegaly Extremities: No edema, Capillary Refill Less than 3 Seconds Skin: No rashes, No breakdown Neurological: Neuro grossly intact, Sensory exam intact to light touch and pain Psych/Mental Status: Normal Affect, Appropriate Current Medications Acetaminophen (Tylenol) 1,000 mg PO Q8H PRN PRN PRN Reason: HEADACHE Last Admin: 10/31/18 11:17 Dose: 1,000 mg Buprenorphine HCl (Buprenorphine Hcl) 2 mg SL Q12H KARINA; Taper Stop: 11/02/18 21:59 Last Admin: 11/01/18 09:56 Dose: 2 mg Clonidine (Catapres) 0.1 mg PO Q2H PRN PRN PRN Reason: Hot/Cold Sweats or Anxiety Last Admin: 10/31/18 19:38 Dose: 0.1 mg Dicyclomine HCl (Bentyl) 20 mg PO Q6H PRN PRN PRN Reason: Abdomnial Discomfort Last Admin: 10/31/18 22:28 Dose: 20 mg Hydroxyzine Pamoate (Vistaril Pamoate Capsule) 50 mg PO Q6H PRN PRN PRN Reason: Mild Anxiety Last Admin: 11/01/18 02:24 Dose: 50 mg Methocarbamol (Methocarbamol) 750 mg PO Q6H PRN PRN PRN Reason: Muscle Aches Last Admin: 10/31/18 07:40 Dose: 750 mg Nicotine (Nicoderm Cq (Pbkc)) 21 mg TRANSDERM. DAILY [facility] Last Admin: 11/01/18 09:56 Dose: 21 mg Ondansetron HCl (Zofran Odt) 4 mg PO Q6H PRN PRN PRN Reason: NAUSEA Last Admin: 10/31/18 17:17 Dose: 4 mg Pantoprazole Sodium (Protonix) 40 mg PO DAILY [facility] Last Admin: 11/01/18 09:56 Dose: 40 mg Pramipexole Dihydrochloride (Mirapex) 0.25 mg PO Q12H PRN PRN PRN Reason: Restless Legs Last Admin: 10/31/18 17:21 Dose: 0.25 mg Sodium Chloride () 5 - 15 ml IV UD PRN PRN Reason: SALINE FLUSH Trazodone HCl (Desyrel) 50 mg PO QHS [facility] Last Admin: 10/31/18 22:27 Dose: 50 mg Medical Necessity - Tobacco Use Smoking Status: Current every day smoker Tobacco Use: Cigarettes Assessment/Plan All Active Problems Opioid withdrawal (Acute) 1. Acute opioid withdrawal/bipolar disorder -Chronic heroin use, will continue with [facility] protocol for stabilization -She already has outpatient therapy scheduled -Her bipolar disorder is untreated and she does not want to initiate treatment here 2. Tobacco dependence -Continue with nicotine patch -Discussed and encourage smoking cessation 3. Myasthenia gravis -She does not have any treatment for this currently DVT: Ambulation Code Visit Inpatient E&M: 61670 Subs Hosp L2
--- NOTE | 2018-11-01 12:59 | PN_ITS ---
Patient Problems: Active and Suspected Problems Opioid withdrawal (Acute) Subjective: She feels well, states that she has a little bit more manic/hyper today though she is able to manage it. Her GERD is much improved with PPI. Vitals/I&O's: Vital Signs Temp Pulse Resp BP Pulse Ox 98.7 F 63 18 113/63 97 11/01/18 08:15 11/01/18 08:15 11/01/18 08:15 11/01/18 08:15 11/01/18 08:15 Oxygen Delivery Method Room Air Weight: 233 lb 9.6 oz Body Mass Index (BMI) 36.6 Intake and Output for Last 24 Hours 10/30/18 10/31/18 11/01/18 23:59 23:59 23:59 Intake Total 1087 / 1087 Balance 1087 / 1087 General: Alert, Oriented x3, Cooperative, No apparent distress HEENT: Atraumatic, PERRLA, EOMI, Normocephalic Oral: Moist Mucosa Neck: Supple, No JVD Lungs: Clear to auscultation, Normal air movement, No rhonchi, No wheeze, No rales Cardiovascular: Regular rate, Regular Rhythm, Normal S1, Normal S2, No murmurs Abdomen: Soft, Non Tender, Non-Distended, No Hepato-splenomegaly Extremities: No edema, Capillary Refill Less than 3 Seconds Skin: No rashes, No breakdown Neurological: Neuro grossly intact, Sensory exam intact to light touch and pain Psych/Mental Status: Normal Affect, Appropriate Current Medications Acetaminophen (Tylenol) 1,000 mg PO Q8H PRN PRN PRN Reason: HEADACHE Last Admin: 10/31/18 11:17 Dose: 1,000 mg Buprenorphine HCl (Buprenorphine Hcl) 2 mg SL Q12H KARINA; Taper Stop: 11/02/18 21:59 Last Admin: 11/01/18 09:56 Dose: 2 mg Clonidine (Catapres) 0.1 mg PO Q2H PRN PRN PRN Reason: Hot/Cold Sweats or Anxiety Last Admin: 10/31/18 19:38 Dose: 0.1 mg Dicyclomine HCl (Bentyl) 20 mg PO Q6H PRN PRN PRN Reason: Abdomnial Discomfort Last Admin: 10/31/18 22:28 Dose: 20 mg Hydroxyzine Pamoate (Vistaril Pamoate Capsule) 50 mg PO Q6H PRN PRN PRN Reason: Mild Anxiety Last Admin: 11/01/18 02:24 Dose: 50 mg Methocarbamol (Methocarbamol) 750 mg PO Q6H PRN PRN PRN Reason: Muscle Aches Last Admin: 10/31/18 07:40 Dose: 750 mg Nicotine (Nicoderm Cq (Pbkc)) 21 mg TRANSDERM. DAILY [facility] Last Admin: 11/01/18 09:56 Dose: 21 mg Ondansetron HCl (Zofran Odt) 4 mg PO Q6H PRN PRN PRN Reason: NAUSEA Last Admin: 10/31/18 17:17 Dose: 4 mg Pantoprazole Sodium (Protonix) 40 mg PO DAILY [facility] Last Admin: 11/01/18 09:56 Dose: 40 mg Pramipexole Dihydrochloride (Mirapex) 0.25 mg PO Q12H PRN PRN PRN Reason: Restless Legs Last Admin: 10/31/18 17:21 Dose: 0.25 mg Sodium Chloride () 5 - 15 ml IV UD PRN PRN Reason: SALINE FLUSH Trazodone HCl (Desyrel) 50 mg PO QHS [facility] Last Admin: 10/31/18 22:27 Dose: 50 mg Medical Necessity - Tobacco Use Smoking Status: Current every day smoker Tobacco Use: Cigarettes Assessment/Plan All Active Problems Opioid withdrawal (Acute) 1. Acute opioid withdrawal/bipolar disorder -Chronic heroin use, will continue with [facility] protocol for stabilization -She already has outpatient therapy scheduled -Her bipolar disorder is untreated and she does not want to initiate treatment here 2. Tobacco dependence -Continue with nicotine patch -Discussed and encourage smoking cessation 3. Myasthenia gravis -She does not have any treatment for this currently DVT: Ambulation Code Visit Inpatient E&M: 24423 Subs Hosp L2
--- NOTE | 2018-11-01 22:06 | NURSING ---
Pt left AMA at this time, due to home stressors. Dr. Neil notified.
--- NOTE | 2018-11-01 22:09 | PCM.DC.SUM ---
Discharge Date and Diagnosis Date of Admission: 10/30/18 - Secondary Discharge Diagnosis Chronic Problems Bipolar disorder (Chronic) Tobacco dependence (Chronic) Myasthenia gravis (Chronic) Hospital Course and Treatment Summary of Care Provided: Was notified that patient left AMA while undergoing de-toxification via [facility]. - Physical Exam Vital Signs Temp Pulse Resp BP Pulse Ox 98.6 F 63 14 109/78 97 11/01/18 20:15 11/01/18 20:15 11/01/18 20:15 11/01/18 20:15 11/01/18 20:15 Oxygen Delivery Method Room Air Weight: 105.959 kg Body Mass Index (BMI) 36.6 Intake and Output for Last 24 Hours 10/30/18 10/31/18 11/01/18 23:59 23:59 23:59 Intake Total 1087 / 1087 Balance 1087 / 1087 Home Medications: Medications to take at Discharge NK 10/30/18 Primary Care Physician: NOT,DEFINED [NON-STAFF] - Medical Necessity - Tobacco Use Smoking Status: Current every day smoker Tobacco Use: Cigarettes Meaningful Use Info Meaningful Use Diagnoses (Choose all that apply): None applicable
== END 2018-11-01 21:55 | disposition left against medical advice (07) | DRG 894 ==
LOC: ED 15:56 → MS3 17:07
PROVIDERS: Admitting Provider Hospitalist; Emergency Provider Emergency Medicine; Referring Provider Hospitalist; Visit Provider Family Medicine
DX: F11.23 Opioid dependence with withdrawal (principal); F17.210 Nicotine dependence, cigarettes, uncomplicated; G70.00 Myasthenia gravis without (acute) exacerbation; F31.9 Bipolar disorder, unspecified
CPT/HCPCS: 80048; 80076; 80307; 80320; 81001; 84703; 85025; 97802; 99284; 99406; J7030; G0480